=== PATIENT | male | born 1955 | race Caucasian/White ===

== ENCOUNTER 2024-10-27 06:39 | Day surgery (SDC) | payer MEDICAID, MEDICARE ==
[2024-10-27] MEDS ORDERED: Propofol 200 MG/20 ML SDV ONE ×2 (07:07→09:05)
[2024-10-27] MEDS ORDERED: fentaNYL 100 MCG/2 ML SDV ONE (07:07)
[2024-10-27] MEDS: Lactated Ringers 1,000 ML IV SCH (07:23)
[2024-10-27] MEDS ORDERED: Atropine 0.4 MG/ML SDV ONE (09:06)
== END 2024-10-27 10:32 | disposition home or self-care (01) ==
LOC: JP.SDS 06:39
PROVIDERS: ATTEND Surgery
DX: Z12.11 Encounter for screening for malignant neoplasm of colon (principal); R19.5 Other fecal abnormalities; K51.40 Inflammatory polyps of colon without complications; K57.30 Diverticulosis of large intestine without perforation or abscess without bleeding; E66.01 Morbid (severe) obesity due to excess calories
CPT/HCPCS: 00811; 45380; 45385; 88305; J0461; J2704; J3010; J7120